=== PATIENT | female | born 1980 | race Caucasian/White ===

== ENCOUNTER 2020-03-08 08:22 | Outpatient (CLI) | payer BC, SELFPAY ==
--- NOTE | ~2020-03-08 | US_ITS ---
EXAMINATION: US OB <= 14 weeks fetus DATE: 03/08/2020 09:03 INDICATION: Assess viability during first trimester TECHNIQUE: Real-time pelvic ultrasound utilizing both a transvaginal and transabdominal probe was pe rformed. The interpreting radiologist was not present for the study. COMPARISON: 10/20/2019 FINDINGS: The uterus measures 13.0 x 6.7 x 7.4 cm. There is an intrauterine gestational sac. A yolk sac and fe juan diego pole are identified. The crown rump length measures 2.0 cm, which correlates within 2 days of the previous estimated gestational age of 8 weeks and 6 days which is within expected range of variation . heart motion is identified measuring 161 beats per minute (bpm) by M-mode Doppler. A couple c rescentic anechoic subchorionic hematomas along the margins gestational sac, the larger measuring 14 x 10 x 3 mm. The right ovary measures 3.3 x 1.5 x 1.7 cm. The left ovary measures 5.0 x 3.3 x 4.0 cm. 2.9 cm anech oic cyst at the left ovary. There is no free fluid in the pelvis. IMPRESSION: 1. Single living fetus with heart rate of 161 bpm. 2. A couple very small subchorionic hematomas. Reviewed, dictated and finalized at location A. [employer] [employer]
== END 2020-03-08 08:23 | disposition home or self-care (01) ==
PROVIDERS: PCP Internal Medicine; Visit Provider Student in an Organized Health Care Education/Training Program
DX: O46.8X1 Other antepartum hemorrhage, first trimester (principal); O34.81 Maternal care for other abnormalities of pelvic organs, first trimester; Z3A.08 8 weeks gestation of pregnancy; N83.292 Other ovarian cyst, left side
CPT/HCPCS: 76801

== ENCOUNTER 2022-06-22 00:50 | Day surgery (SDC) | payer BC, SELFPAY ==
[2022-06-11 08:39] VITALS: BMI 19.6
[2022-06-22 08:51] VITALS: BP 97/57; PULSE 75; RESP 16; TEMP 36.8; O2SAT 100; BMI 19.0
[2022-06-22] MEDS: LACTATED RINGERS 1,000 ML 150 ML IV CONT (09:02)
--- NOTE | 2022-06-22 09:09 | WPDANESEPPF ---
Anes - Initial Pre Proc Eval Procedure: Operation Date: 06/22/22 10:00 Proposed Procedures p Screening Colonoscopy - Kody Richter MD Date/Time: 06/22/22 09:09 Surgeon: Kody Richter MD Pre Op Diagnosis: family hx colon ca Patient Data Age: 42 Gender: F Height: 1.7 m Weight: 55.1 kg Last Vital Signs Temp 36.8 C 06/22/22 08:51 Pulse 75 06/22/22 08:51 Resp 16 06/22/22 08:51 BP 97/57 L 06/22/22 08:51 Pulse Ox 100 06/22/22 08:51 O2 Del Method Room Air 06/22/22 08:51 Allergies Allergy/AdvReac Type Severity Reaction Status Date / Time No Known Allergies Allergy Verified 06/22/22 08:49 Home Medications Medication Instructions Recorded Confirmed Type cholecalciferol (vitamin D3) 50 50 mcg PO DAILY 06/14/20 06/22/22 History mcg (2,000 unit) capsule cyclobenzaprine 10 mg tablet 10 mg PO TID PRN muscle spasm #90 04/17/22 06/22/22 Rx tabs multivitamin 1 tablet PO DAILY 04/17/22 06/22/22 History btkuubo-murp-ooqus-oreg-capryl 1 cap PO DAILY 06/11/22 06/22/22 History Patient hx anesthesia problems: none Family hx anesthesia problems: none Results Review: All pre-operative results and documents have been reviewed as part of the pre-operative evaluation. [facility] Past Medical History Medical History Irritable bowel Vaginal delivery Surgical History Surgical History History of myringotomy Family History Family History Grandparent Diabetes mellitus Carcinoma of colon Mother Hypertension Social History Social History Smoking status: Former smoker Second hand tobacco smoke exposure: Yes Alcohol intake: never Substance use type: does not use Lack of Transportation: No Lack of Food: Never True Current Housing: I Have Housing Concerned About Future Housing: No Difficulty Paying Gas/Electric Bills: No Difficulty Paying for Meds: No Currently Unemployed: No Education: Master's Degree or Higher Difficulty w/ Childcare or Family Care: No Living arrangements: with family Spiritual care concerns: No Anes - Eval Final PreProcedure Day of Procedure 06/22/22 09:09 Patient weight: normal Heart: regular rate and rhythm Lungs: clear to auscultation Airway: Mallampati scale class II Neurological: alert and oriented Last oral intake: >/= 8 hours ASA classification: I Emergent: no Anesthetic plan: proceed Anesthesia type and monitoring: general GIVS and standard monitoring Results Review: All pre-operative results and documents have been reviewed as part of the pre-operative evaluation. Informed Consent: The patient's anesthetic plan and its attendant risks and benefits were discussed with the patient/family/POA. Questions were solicited and answers provided to the satisfaction of the patient/family/POA.
--- NOTE | 2022-06-22 09:36 | PM.HPGS ---
History of Present Illness History of Present Illness Consent: Risks, benefits, and alternatives have been discussed and questions answered. Patient agrees to proceed with procedure. Chief complaint: family hx colon ca Narrative: Rocio Cole is a 42 year old female here for first screening colonoscopy, grandmother had colon cancer Review of Systems Constitutional: Constitutional: Denies headache(s) and Denies weakness Eyes: Eyes: Denies blurry vision ENT: Reports Normal hearing present, Denies headache(s) and Denies neck pain Cardiovascular: Cardiovascular: Denies chest pain and Denies dyspnea Respiratory: Respiratory: Denies dyspnea Gastrointestinal: Gastrointestinal: Reports no additional gastrointestinal complaints Genitourinary: Genitourinary: Denies dysuria Musculoskeletal: Musculoskeletal: Denies neck pain Integumentary/Breasts: Skin/Breast: Denies dry skin Neurologic: Reports Normal hearing present, Denies headache(s) and Denies weakness Psychiatric: Psychiatric: Denies anxiety Endocrine: Endocrine: Denies change in body appearance Hematologic/Lymphatic: Hematologic/Lymphatic: Denies easy bleeding Allergic/Immunologic: Allergic/Immunologic: Denies urticaria PMFSH Past Medical History Medical History (Updated 06/22/22 @ 09:36 by Kody Richter MD) Colon cancer screening Irritable bowel Vaginal delivery Surgical History Surgical History History of myringotomy Family History Family History Grandparent Diabetes mellitus Carcinoma of colon Mother Hypertension Social History Social History Smoking status: Former smoker Second hand tobacco smoke exposure: Yes Alcohol intake: never Substance use type: does not use Lack of Transportation: No Lack of Food: Never True Current Housing: I Have Housing Concerned About Future Housing: No Difficulty Paying Gas/Electric Bills: No Difficulty Paying for Meds: No Currently Unemployed: No Education: Master's Degree or Higher Difficulty w/ Childcare or Family Care: No Living arrangements: with family Spiritual care concerns: No Meds Home Medications and Allergies Home Medications Medication Instructions Recorded Confirmed Type cholecalciferol (vitamin D3) 50 50 mcg PO DAILY 06/14/20 06/22/22 History mcg (2,000 unit) capsule cyclobenzaprine 10 mg tablet 10 mg PO TID PRN muscle spasm #90 04/17/22 06/22/22 Rx tabs multivitamin 1 tablet PO DAILY 04/17/22 06/22/22 History pvxvokd-uzsd-scdou-oreg-capryl 1 cap PO DAILY 06/11/22 06/22/22 History Allergies Allergy/AdvReac Type Severity Reaction Status Date / Time No Known Allergies Allergy Verified 06/22/22 08:49 Vital Signs Vital Signs - 24 hr 06/22/22 08:51 Temperature 98.3 F Pulse Rate 75 Respiratory Rate 16 Blood Pressure 97/57 L Pulse Oximetry 100 Oxygen Delivery Room Air Exam Const: General: comfortable and no acute distress HENMT: Face/Nose/Sinus: Normal nares present Eyes: General: appearance normal, both eyes and all related structures Neck: Neck: no JVD Resp: Auscultation: clear to auscultation bilaterally Cardio: Rate: regular rate Rhythm: regular rhythm GI: Inspection: non-distended GI Palp: Yes Soft to palpation Skin: General skin exam: normal color Neuro: General: gait normal Speech: normal speech Extrem: General: normal to inspection Psych: Mental Status: mental status grossly normal Assessment and Plan Assessment and plan (1) Colon cancer screening: Code(s): Z12.11 - Encounter for screening for malignant neoplasm of colon Status: Acute Assessment and Plan: colonoscopy
[2022-06-22 10:06] VITALS: BP 95/57; PULSE 77; RESP 21; O2SAT 100
[2022-06-22 10:16] VITALS: BP 97/60; PULSE 71; RESP 22; O2SAT 100
[2022-06-22 10:26] VITALS: BP 99/51; PULSE 65; RESP 16; O2SAT 100
== END 2022-06-22 10:32 | disposition home or self-care (01) ==
PROVIDERS: PCP Family Medicine; Visit Provider Internal Medicine Gastroenterology
PROC: 0DJD8ZZ Inspection of Lower Intestinal Tract, Via Natural or Artificial Opening Endoscopic (ICD-10-PCS; CPT 45378; principal; 2022-06-22 10:00)
DX: Z12.11 Encounter for screening for malignant neoplasm of colon (principal); Z80.0 Family history of malignant neoplasm of digestive organs
CPT/HCPCS: 45378; J2704; J7120

== ENCOUNTER 2023-08-14 07:03 | Outpatient (CLI) | payer OTHER, SELFPAY ==
[2023-08-14 07:38] LABS: Hematocrit 36.3 % (37.0-47.0); Hemoglobin 11.3 g/dL (12.0-15.0); Mean Corpuscular HGB Conc 31.1 g/dl (32-36); Mean Corpuscular Hemoglobin 26.7 pg (26-34); Mean Corpuscular Volume 85.8 fl (80-100); Mean Platelet Volume 10.3 fl (7.4-10.4); Platelet Count Result 217 k/mm3 (150-375); Red Blood Count 4.23 M/mm3 (4.2-5.4); Red Cell Distribution Width 15.3 % (11.5-14.5); White Blood Count 4.1 K/mm3 (4.5-10.0)
[2023-08-14 07:49] LABS: Alanine Aminotransferase 29 U/L (6-35); Albumin Level 4.4 g/dL (3.5-5.1); Alkaline Phosphatase 32 U/L (38-126); Anion Gap 6 mmol/L (4-12); Aspartate Amino Transferase 22 U/L (14-36); Bilirubin,Total 0.5 mg/dL (0.2-1.3); Blood Urea Nitrogen 15 mg/dL (7-17); Carbon Dioxide 27 mmol/L (22-30); Chloride 105 mmol/L (98-107); Estimated Glomerular Filt Rate > 60; Glucose 88 mg/dL (65-110); Potassium 4.1 mmol/L (3.4-5.0); Sodium 138 mmol/L (137-145)
[2023-08-14 08:20] LABS: Thyroid Stimulating Hormone 0.793 uIU/mL (0.465-4.680)
[2023-08-18 11:58] LABS: Vitamin D 1,25 (OH)2 Total 45 pg/mL (18-72); Vitamin D2 1,25 (OH)2 <8 pg/mL; Vitamin D3 1,25 (OH)2 45 pg/mL
== END 2023-08-14 07:04 | disposition home or self-care (01) ==
LOC: ANHLAB 07:06
PROVIDERS: PCP Family Medicine; Visit Provider Family Medicine
DX: E55.9 Vitamin D deficiency, unspecified (principal); R79.89 Other specified abnormal findings of blood chemistry; Z79.899 Other long term (current) drug therapy
CPT/HCPCS: 36415; 80053; 82652; 84443; 85027

== ENCOUNTER 2023-08-21 07:28 | Outpatient (CLI) | payer OTHER, SELFPAY ==
[2023-08-21 09:06] LABS: Iron 14 ug/dL (37-170)
[2023-08-21 09:16] LABS: Folic Acid 18.4 ng/mL (2.76->20)
[2023-08-21 09:44] LABS: Ferritin 5.64 ng/mL (6.24-137)
== END 2023-08-21 07:29 | disposition home or self-care (01) ==
LOC: ANHLAB 07:31
PROVIDERS: PCP Family Medicine; Visit Provider Nurse Practitioner
DX: D64.9 Anemia, unspecified (principal)
CPT/HCPCS: 36415; 82607; 82728; 82746; 83540

== ENCOUNTER 2023-11-01 07:07 | Outpatient (CLI) | payer OTHER, SELFPAY ==
[2023-11-01 07:44] LABS: Hematocrit 39.8 % (37.0-47.0); Hemoglobin 12.8 g/dL (12.0-15.0); Mean Corpuscular HGB Conc 32.2 g/dl (32-36); Mean Corpuscular Hemoglobin 29.6 pg (26-34); Mean Corpuscular Volume 91.9 fl (80-100); Mean Platelet Volume 10.1 fl (7.4-10.4); Platelet Count Result 222 k/mm3 (150-375); Red Blood Count 4.33 M/mm3 (4.2-5.4); Red Cell Distribution Width 15.3 % (11.5-14.5); White Blood Count 4.3 K/mm3 (4.5-10.0)
[2023-11-01 07:53] LABS: Cholesterol 147 mg/dL (0-200); HDL Direct 59 mg/dL; Triglycerides 51 mg/dL (<150)
[2023-11-01 08:04] LABS: LDL Cholesterol Direct 84 mg/dL
[2023-11-01 08:10] LABS: Iron 92 ug/dL (37-170)
[2023-11-01 08:21] LABS: Percent Iron Saturation 27 % (20-50)
[2023-11-01 08:50] LABS: Ferritin 9.13 ng/mL (6.24-137)
== END 2023-11-01 07:08 | disposition home or self-care (01) ==
LOC: ANHLAB 07:08
PROVIDERS: PCP Family Medicine; Visit Provider Family Medicine
DX: D64.9 Anemia, unspecified (principal); F41.9 Anxiety disorder, unspecified; E61.1 Iron deficiency; Z79.899 Other long term (current) drug therapy; Z13.220 Encounter for screening for lipoid disorders
CPT/HCPCS: 36415; 80061; 82728; 83540; 83550; 85027

== ENCOUNTER 2023-11-15 15:16 | Outpatient (CLI) | payer OTHER, SELFPAY ==
--- NOTE | ~2023-11-15 | MM_ITS ---
EXAMINATION: MM screening hung BI w aiyana HISTORY: Screening TECHNIQUE: Craniocaudal and mediolateral oblique 3-D tomosynthesis images were obtained and synthetic 2-D images were generated. CAD analysis was submitted and interpreted. COMPARISON: No prior mammogram is available for comparison at this institution. BREAST PARENCHYMAL COMPOSITION: Dense: The breasts are extremely dense, which lowers the sensitivity of mammography. FINDINGS: There is no evidence of suspicious mass, calcification, or architectural distortion to sugg est malignancy in either breast. There has been no suspicious interval change. IMPRESSION: 1. No mammographic evidence of malignancy. 2. Recommend routine screening mammography in one year. BI-RADS Category 1: Negative Reviewed, dictated and finalized at location B.
== END 2023-11-15 15:17 ==
LOC: MICIMG 15:17
PROVIDERS: Visit Provider Family Medicine
DX: Z12.31 Encounter for screening mammogram for malignant neoplasm of breast (principal)
CPT/HCPCS: 77063; 77067

== ENCOUNTER 2024-06-12 07:44 | Outpatient (CLI) | payer OTHER, SELFPAY ==
[2024-06-12 08:33] LABS: Hematocrit 38.8 % (37.0-47.0); Hemoglobin 12.8 g/dL (12.0-15.0); Mean Corpuscular Hemoglobin 29.8 pg (26-34); Mean Corpuscular Volume 90.4 fl (80-100); Mean Platelet Volume 9.7 fl (7.4-10.4); Platelet Count Result 231 k/mm3 (150-375); Red Blood Count 4.29 M/mm3 (4.2-5.4); White Blood Count 5.4 K/mm3 (4.5-10.0)
[2024-06-12 09:20] LABS: Iron 156 ug/dL (37-170)
[2024-06-12 09:26] LABS: Alanine Aminotransferase 35 U/L (6-35); Albumin Level 4.4 g/dL (3.5-5.1); Alkaline Phosphatase 32 U/L (38-126); Anion Gap 10 mmol/L (4-12); Aspartate Amino Transferase 28 U/L (14-36); Bilirubin,Total 0.9 mg/dL (0.2-1.3); Blood Urea Nitrogen 14 mg/dL (7-17); Calcium 9.1 mg/dL (8.4-10.2); Carbon Dioxide 25 mmol/L (22-30); Chloride 102 mmol/L (98-107); Estimated Glomerular Filt Rate > 60; Glucose 75 mg/dL (65-110); Sodium 137 mmol/L (137-145)
[2024-06-12 09:29] LABS: Percent Iron Saturation 38 % (20-50)
[2024-06-12 09:52] LABS: Thyroid Stimulating Hormone 0.594 uIU/mL (0.465-4.680)
[2024-06-12 09:56] LABS: Ferritin 5.94 ng/mL (6.24-137)
== END 2024-06-12 07:45 | disposition home or self-care (01) ==
PROVIDERS: PCP Family Medicine; Visit Provider Family Medicine
DX: D64.9 Anemia, unspecified (principal); E55.9 Vitamin D deficiency, unspecified; F41.9 Anxiety disorder, unspecified; R79.89 Other specified abnormal findings of blood chemistry; Z79.899 Other long term (current) drug therapy
CPT/HCPCS: 36415; 80053; 82652; 82728; 83540; 83550; 84443; 85027

== ENCOUNTER 2024-12-09 07:04 | Outpatient (CLI) | payer OTHER, SELFPAY ==
[2024-12-09 07:44] LABS: Hematocrit 42.1 % (37.0-47.0); Hemoglobin 14.1 g/dL (12.0-15.0); Mean Corpuscular HGB Conc 33.5 g/dl (32-36); Mean Corpuscular Hemoglobin 30.9 pg (26-34); Mean Corpuscular Volume 92.3 fl (80-100); Platelet Count Result 235 k/mm3 (150-375); Red Blood Count 4.56 M/mm3 (4.2-5.4); White Blood Count 5.9 K/mm3 (4.5-10.0)
[2024-12-09 08:05] LABS: Iron 78 ug/dL (37-170)
[2024-12-09 08:09] LABS: Alanine Aminotransferase 26 U/L (6-35); Albumin Level 4.5 g/dL (3.5-5.1); Alkaline Phosphatase 31 U/L (38-126); Anion Gap 9 mmol/L (4-12); Aspartate Amino Transferase 25 U/L (14-36); Bilirubin,Total 0.6 mg/dL (0.2-1.3); Blood Urea Nitrogen 21 mg/dL (7-17); Calcium 9.0 mg/dL (8.4-10.2); Carbon Dioxide 26 mmol/L (22-30); Chloride 102 mmol/L (98-107); Estimated Glomerular Filt Rate > 60; Glucose 90 mg/dL (65-110); Potassium 4.0 mmol/L (3.4-5.0); Sodium 137 mmol/L (137-145); Total Protein 7.1 g/dL (6.3-8.2)
[2024-12-09 08:14] LABS: Percent Iron Saturation 23 % (20-50)
[2024-12-09 08:44] LABS: Thyroid Stimulating Hormone 0.869 uIU/mL (0.465-4.680)
[2024-12-09 08:46] LABS: Ferritin 18.90 ng/mL (6.24-137)
== END 2024-12-09 07:05 | disposition home or self-care (01) ==
LOC: ANHLAB 07:05
PROVIDERS: PCP Family Medicine; Visit Provider Family Medicine
DX: D64.9 Anemia, unspecified (principal); E61.1 Iron deficiency; F41.9 Anxiety disorder, unspecified; E55.9 Vitamin D deficiency, unspecified; R79.89 Other specified abnormal findings of blood chemistry; Z79.899 Other long term (current) drug therapy
CPT/HCPCS: 36415; 80053; 82728; 83540; 83550; 84443; 85027